=== PATIENT | female | born 1970 ===

== ENCOUNTER 2017-07-28 00:16 | Emergency (ER) | payer MEDICAID ==
[2017-07-28] MEDS ORDERED: Sodium Chloride 0.9% 1,000 ML IV ONE (00:44)
--- NOTE | 2017-07-28 00:46 | C.PDOC ---
History Of Present Illness 46 year old female presents to the ED complaining of upper abdominal pain, onset tonight. She denies any associated nausea, vomiting, and diarrhea. Pain is described as severe. Patient denies any recent travel. No known sick contacts. Time Seen by Provider: 07/28/17 00:40 Chief Complaint (Nursing): Abdominal Pain History Per: Patient History/Exam Limitations: no limitations Onset/Duration Of Symptoms: Hrs Current Symptoms Are (Timing): Still Present Severity: Severe Pain Scale Rating Of: 10 Location Of Pain/Discomfort: RUQ, Epigastric Past Medical History Reviewed: Historical Data, Nursing Documentation, Vital Signs Vital Signs: Last Vital Signs Temp 98.7 F 07/28/17 00:31 Pulse 92 H 07/28/17 00:31 Resp 16 07/28/17 00:31 BP 145/85 07/28/17 00:31 Pulse Ox 100 07/28/17 01:07 - Medical History PMH: HTN Other Surgeries: Gastric bypass surgery Family History: States: No Known Family Hx - Social History Hx Alcohol Use: No Hx Substance Use: No Review Of Systems Except As Marked, All Systems Reviewed And Found Negative. Constitutional: Negative for: Fever, Chills Gastrointestinal: Positive for: Abdominal Pain. Negative for: Nausea, Vomiting , Diarrhea Physical Exam - Physical Exam Appears: In Acute Distress (moderate distress secondary to pain) Skin: Normal Color, Warm, Dry Head: Atraumatic, Normacephalic Eye(s): bilateral: Normal Inspection, PERRL, EOMI Nose: Normal Oral Mucosa: Moist Neck: Normal ROM, Supple Chest: Symmetrical Cardiovascular: Rhythm Regular, No Murmur Respiratory: Normal Breath Sounds, No Accessory Muscle Use, No Rales, No Rhonchi , No Wheezing Gastrointestinal/Abdominal: Soft, Tenderness (localized to the epigastrium and RUQ), No Guarding, No Rebound Back: Normal Inspection, No CVA Tenderness, No Vertebral Tenderness Extremity: Bilateral: Atraumatic, Normal Color And Temperature, Normal ROM Pulses: Left Dorsalis Pedis: Normal, Right Dorsalis Pedis: Normal Neurological/Psych: Oriented x3, Normal Speech ED Course And Treatment - Laboratory Results Result Diagrams: 07/28/17 00:58 07/28/17 00:58 O2 Sat by Pulse Oximetry: 100 (RA) Pulse Ox Interpretation: Normal Medical Decision Making Medical Decision Making: Initial Impression: 46 y/o female with epigastric pain Time: 00:43 Initial Plan: --Labs --IVF hydration --Toradol 30 mg IVP --Bentyl 20 mg IM --Protonix 40 mg IVP --Abdominal US Disposition Counseled Patient/Family Regarding: Diagnosis - Disposition Referrals: [facility] [Outside] Disposition: HOME/ ROUTINE Disposition Time: 04:10 Condition: STABLE Prescriptions: Dicyclomine [Bentyl] 10 mg PO QID PRN #14 cap PRN Reason: Pain, Moderate (4-7) Instructions: Gallstones (DC) Forms: [facility] [facility] (Divehi), Gen Discharge Inst Bengali Print Language: GEORGIAN - POA Present On Arrival: None - Clinical Impression Clinical Impression: Gall stone, Gall bladder pain - Scribe Statement The provider has reviewed the documentation as recorded by the Scribe (Kerline Spencer) Provider Attestation: All medical record entries made by the Scribe were at my direction and personally dictated by me. I have reviewed the chart and agree that the record accurately reflects my personal performance of the history, physical exam, medical decision making, and the department course for this patient. I have also personally directed, reviewed, and agree with the discharge instructions and disposition.
[2017-07-28] MEDS ORDERED: Sodium Chloride 0.9% 1,000 ML ONE ×2 (00:50→00:54)
[2017-07-28 01:01] LABS: BASO # 0.1 K/uL (0.0-0.2); BASO % 0.6 % (0.0-2.0); EOS # 0.1 K/uL (0.0-0.7); EOS % 1.1 % (0.0-4.0); HEMOGLOBIN 13.7 g/dL (11.0-16.0); LYMPH # 3.3 K/uL (1.0-4.3); LYMPH % 35.2 % (20.0-40.0); MEAN CELL VOLUME 84.7 fL (81.0-99.0); MEAN CORPUSCULAR HEMOGLOBIN 29.2 pg (27.0-31.0); MEAN CORPUSCULAR HGB CONC 34.4 g/dL (33.0-37.0); MEAN PLATELET VOLUME 8.9 fL (7.2-11.7); MONO # 0.7 K/uL (0.0-0.8); MONO % 7.6 % (0.0-10.0); NEUT # 5.1 K/uL (1.8-7.0); NEUT % 55.5 % (50.0-75.0); RBC 4.71 Mil/uL (3.80-5.20); RED CELL DISTRIBUTION WIDTH 13.6 % (11.5-14.5); WHITE BLOOD COUNT 9.3 K/uL (4.8-10.8)
[2017-07-28 01:16] LABS: ALB/GLOB RATIO 1.1 (1.0-2.1); ALBUMIN 4.2 g/dL (3.5-5.0); ALT/SGPT 19 U/L (9-52); AST/SGOT 24 U/L (14-36); BLOOD UREA NITROGEN 15 mg/dL (7-17); CALCIUM 9.4 mg/dl (8.6-10.4); GFR AFRICAN-AMERICAN > 60; GFR NON-AFRICAN AMERICAN > 60; LIPASE 163 U/L (23-300)
[2017-07-28 01:40] LABS: SQUAMOUS EPITHIAL 1 /hpf (0-5); URINE BILIRUBIN NEGATIVE (NEGATIVE); URINE BLOOD NEGATIVE (NEGATIVE); URINE CLARITY Clear (Clear); URINE COLOR Yellow (YELLOW); URINE GLUCOSE (UA) NORMAL (Normal); URINE LEUKOCYTE ESTERASE NEG Leu/uL (Negative); URINE PROTEIN NEGATIVE (NEGATIVE)
--- NOTE | 2017-07-28 04:08 | US ---
EXAM: US Abdomen Limited, Right Upper Quadrant EXAM DATE/TIME: 07/28/2017 12:45 AM CLINICAL HISTORY: 46 years old, female; Pain; Abdominal pain; Epigastric; Additional info: Ruq and epigastric pain TECHNIQUE: Real-time ultrasound of the right upper quadrant with image documentation. COMPARISON: No relevant prior studies available. FINDINGS: Gallbladder: Contains multiple tiny gallstones, which were reportedly mobile on real time, as well as sludge. No significant gallbladder wall thickening noted. No evidence of pericholecystic fluid. Reportedly negative sonographic Fontana's sign. Common bile duct: Does not appear abnormally dilated, measuring less than 6 mm in diameter. Liver: Demonstrates mildly increased parenchymal echogenicity, which could be due to mild fatty infiltration. Borderline enlarged, measuring 16.2 cm in length. Pancreas: Poorly seen due to gas. Imaged portions appear unremarkable. Right kidney: Within normal limits in appearance. Measures 10 cm in length. No evidence of hydronephrosis. IMPRESSION: Gallstones and sludge. No sonographic evidence of acute cholecystitis. Mild fatty infiltration of the liver. See above for remaining findings.
[2017-07-28 04:31] VITALS: BP 147/89; PULSE 87; RESP 17; TEMP 98.8; O2SAT 95
== END 2017-07-28 04:31 | disposition home or self-care (01) ==
LOC: C.ER 00:16
DX: K80.80 Other cholelithiasis without obstruction (principal)
CPT/HCPCS: 76705; 80053; 81001; 83690; 85025; 96372; 96374; 96375; 99284; C9113; J0500; J1885; J7040